=== PATIENT | male | born 1950 | race Caucasian/White ===

== ENCOUNTER 2020-07-06 20:31 | Emergency (ER) | payer MEDICARE, OTHER ==
[~2020-07-06 20:31] MED LIST: BENTYL10 MG PO; CARDIZEM60 MG PO; DIGITEK125 MCG PO; GLUCOTROL10 MG PO; HUMULIN N100 UNIT/1 SC; LIPITOR20 MG PO; METFORMIN HCL500 MG PO; MIRALAX17 GM PO; NEURONTIN300 MG PO; PRADAXA150 MG PO; PROTONIX 40MG T40 MG PO; TAMIFLU 75MG CA75 MG PO; VITAMIN B-121000 MC1 PO; VITAMIN E PO; VITAMIN E400 UNI1 PO; VITAMIN E400 UNI2 PO; ZESTRIL5 MG PO
[2020-07-06 21:03] LABS: BASOPHIL 1.4 % (0-2); EOSINOPHIL 6.2 % (0-7); HCT 42.7 % (42.0-52.0); HGB 14.2 g/dl (13.2-18.0); LYMPHOCYTE 34.6 % (15-48); MCH 31.7 pg (25.0-31.0); MCHC 33.3 g/dL (32.0-36.0); MCV 95.3 fL (78.0-100.0); MONOCYTE 7.5 % (0-12); MPV 9.8 fL (6.0-9.5); NEUTROPHIL 49.7 % (41-80); NRBC 0; PLT 260 K/uL (150-400); RBC 4.48 M/uL (4.70-6.00); RDW 12.4 % (11.5-14.0); WBC 6.7 K/uL (4.0-10.5)
[2020-07-06 21:08] LABS: ALBUMIN 3.6 g/dL (3.4-5.0); BILIRUBIN - TOTAL 0.4 mg/dL (0.2-1.0); BUN/CREAT RATIO (CALC) 17.7 RATIO; CREATININE 0.96 mg/dL (0.67-1.17); GLOBULIN (CALCULATION) 3.9 g/dL; POTASSIUM 4.2 mmol/L (3.5-5.1); TOTAL PROTEIN 7.5 g/dL (6.4-8.2)
== END 2020-07-06 22:09 | disposition home or self-care (01) ==
LOC: FER 20:31
PROVIDERS: Nurse Practitioner Family
DX: E11.65 Type 2 diabetes mellitus with hyperglycemia (principal); Z79.84 Long term (current) use of oral hypoglycemic drugs
CPT/HCPCS: 36415; 80053; 82009; 84484; 85025; J7030

== ENCOUNTER 2020-09-06 20:40 | Emergency (ER) | payer MEDICARE, OTHER ==
[2020-09-06 22:09] LABS: BASOPHIL 1.1 % (0-2); EOSINOPHIL 3.9 % (0-7); HCT 35.8 % (42.0-52.0); HGB 12.1 g/dl (13.2-18.0); LYMPHOCYTE 18.6 % (15-48); MCHC 33.8 g/dL (32.0-36.0); MCV 94.7 fL (78.0-100.0); MONOCYTE 7.6 % (0-12); MPV 9.4 fL (6.0-9.5); NEUTROPHIL 68.3 % (41-80); NRBC 0; PLT 217 K/uL (150-400); RBC 3.78 M/uL (4.70-6.00); WBC 8.5 K/uL (4.0-10.5)
[2020-09-06 22:26] LABS: BUN/CREAT RATIO (CALC) 11.9 RATIO; CREATININE 1.01 mg/dL (0.67-1.17)
[2020-09-06 23:17] LABS: BILIRUBIN NEGATIVE (NEGATIVE); BLOOD NEGATIVE Ery/uL (NEGATIVE); CLARITY CLEAR (CLEAR); COLOR YELLOW (YELLOW); GLUCOSE (U) TRACE mg/dL (NORMAL); LEUKOCYTES NEGATIVE Leu/uL (NEGATIVE); NITRITE NEGATIVE (NEGATIVE); PROTEIN NEGATIVE (NEGATIVE)
== END 2020-09-06 23:54 | disposition home or self-care (01) ==
LOC: FER 20:40
PROVIDERS: Emergency Medicine; Nurse Practitioner Family
DX: E86.0 Dehydration (principal); E11.9 Type 2 diabetes mellitus without complications; I48.91 Unspecified atrial fibrillation; K21.9 Gastro-esophageal reflux disease without esophagitis; Z85.72 Personal history of non-Hodgkin lymphomas; Z79.899 Other long term (current) drug therapy; Z79.84 Long term (current) use of oral hypoglycemic drugs
CPT/HCPCS: 36415; 71045; 80048; 80162; 81003; 84484; 85025; 93005; J7030

== ENCOUNTER 2021-03-19 22:03 | Emergency (ER) | payer OTHER, MEDICARE ==
[2021-03-19 22:31] LABS: BASOPHIL 1.4 % (0-2); EOSINOPHIL 5.2 % (0-7); HCT 35.2 % (42.0-52.0); HGB 11.4 g/dl (13.2-18.0); LYMPHOCYTE 22.5 % (15-48); MCH 29.9 pg (25.0-31.0); MCHC 32.4 g/dL (32.0-36.0); MCV 92.4 fL (78.0-100.0); MONOCYTE 7.6 % (0-12); MPV 9.2 fL (6.0-9.5); NEUTROPHIL 62.6 % (41-80); NRBC 0; PLT 264 K/uL (150-400); RBC 3.81 M/uL (4.70-6.00); RDW 13.2 % (11.5-14.0)
[2021-03-19 22:48] LABS: ALBUMIN 2.7 g/dL (3.4-5.0); BILIRUBIN - TOTAL 0.4 mg/dL (0.2-1.0); BUN/CREAT RATIO (CALC) 11.1 RATIO; CREATININE 0.99 mg/dL (0.67-1.17); GLOBULIN (CALCULATION) 3.7 g/dL; MAGNESIUM 1.7 mg/dL (1.8-2.4); PHOSPHORUS 3.8 mg/dL (2.6-4.7); POTASSIUM 3.8 mmol/L (3.5-5.1); TOTAL PROTEIN 6.4 g/dL (6.4-8.2)
[2021-03-20 00:01] LABS: BILIRUBIN NEGATIVE (NEGATIVE); BLOOD NEGATIVE Ery/uL (NEGATIVE); CLARITY CLEAR (CLEAR); COLOR YELLOW (YELLOW); GLUCOSE (U) TRACE mg/dL (NORMAL); LEUKOCYTES NEGATIVE Leu/uL (NEGATIVE); NITRITE NEGATIVE (NEGATIVE); PROTEIN NEGATIVE (NEGATIVE)
== END 2021-03-20 09:05 | disposition home or self-care (01) ==
LOC: FER 22:03
PROVIDERS: Emergency Medicine
DX: R54 Age-related physical debility (principal); I48.91 Unspecified atrial fibrillation; Z20.822 Contact with and (suspected) exposure to COVID-19
CPT/HCPCS: 36415; 71045; 80053; 81003; 83605; 83735; 84100; 84145; 85025; 93005; J0692; J3370; J3475; J7030; J7050; U0002